=== PATIENT | male | born 1985 | race Caucasian/White ===

== ENCOUNTER 2017-01-29 11:52 | Emergency (ER) | payer MEDICAID, OTHER ==
[2017-01-29] MEDS ORDERED: Lactated Ringers 1,000 ML ONE (11:53)
[2017-01-29] MEDS ORDERED: fentaNYL 100 MCG/2 ML SDV ONE (11:53)
[2017-01-29] MEDS ORDERED: Lactated Ringers 1,000 ML IV SCH (12:00)
[2017-01-29] MEDS ORDERED: fentaNYL 100 MCG/2 ML SDV IVPUSH ONE (12:00)
[2017-01-29] MEDS ORDERED: HYDROmorphone 1 MG/ML Syringe ONE (12:09)
[2017-01-29] MEDS ORDERED: Meropenem 1 GM SDV IVPUSH ONE (12:11)
[2017-01-29] MEDS ORDERED: Diphtheria,Pertussis(Acell),Tetanus Vaccine 0.5 ML Syringe IM ONE (12:14)
[2017-01-29] MEDS ORDERED: HYDROmorphone 1 MG/ML Syringe IVPUSH PRN (12:14)
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
[2017-01-29] MEDS ORDERED: hydrOXYzine HCl 50 MG/ML SDV IM ONE (12:39)
== END 2017-01-29 13:09 ==
LOC: CC.ED 11:52
DX: S62.521B Displaced fracture of distal phalanx of right thumb, initial encounter for open fracture (principal); S62.522B Displaced fracture of distal phalanx of left thumb, initial encounter for open fracture; Z23 Encounter for immunization; Z88.1 Allergy status to other antibiotic agents; W23.0XXA Caught, crushed, jammed, or pinched between moving objects, initial encounter
CPT/HCPCS: 73130; 90471; 90715; 96361; 96372; 96374; 96375; 99284; J1170; J2185; J3010; J3410; J7120

== ENCOUNTER 2023-04-11 17:54 | Emergency (ER) | payer OTHER ==
[2023-04-11] MEDS ORDERED: Dexamethasone 10 MG/ML SDV IM ONE (18:15)
[2023-04-11] MEDS ORDERED: Ketorolac 30 MG/ML SDV IM ONE (18:15)
== END 2023-04-11 18:32 | disposition home or self-care (01) ==
LOC: CC.ED 17:54
DX: M10.072 Idiopathic gout, left ankle and foot (principal); Z88.8 Allergy status to other drugs, medicaments and biological substances; Z79.899 Other long term (current) drug therapy
CPT/HCPCS: 96372; 99283; J1100; J1885